=== PATIENT | female | born 1945 | race Caucasian/White ===

== ENCOUNTER 2018-03-02 08:17 | Day surgery (SDC) | payer BC ==
[~2018-03-02] VITALS: Ht 160 cm; Wt 90.5 kg
[~2018-03-02 08:17] MED LIST: ACET325 PO; ALBU90OI INH; CHOL10002 PO; Flagyl500 MG PO; Flovent Diskus50 MCG INH; GLIM2 PO; LEVFLO500 PO; LEVSOD88 PO; LOSARTAN POTAS100 MG PO; Lovastatin20 MG PO; METF500 PO; Micro-K10 MEQ PO; Norco 5-325 Ta1 EACH PO; Omega 3 1,0001 EACH PO; QVAR INH; RIZATRIPTAN5 M1; TRAM50 PO; TRIHYD5075 PO; Toprol Xl50 MG PO; Travatan Z5 ML TOP
[2018-03-02] MEDS ORDERED: AZAT50 (08:58)
[2018-03-02] MEDS ORDERED: IBUP400 (08:59)
[2018-03-02] MEDS ORDERED: CALCA400CH (08:59)
== END 2018-03-02 10:27 | disposition home or self-care (01) ==
LOC: ORSCSDS 08:17
PROVIDERS: Internal Medicine Gastroenterology
PROC: 0DBP8ZX Excision of Rectum, Via Natural or Artificial Opening Endoscopic, Diagnostic (ICD-10-PCS; principal; 2018-03-02 09:30)
PROC: 0DBE8ZX Excision of Large Intestine, Via Natural or Artificial Opening Endoscopic, Diagnostic (ICD-10-PCS; principal; 2018-03-02 09:30)
DX: K51.90 Ulcerative colitis, unspecified, without complications (principal); K51.30 Ulcerative (chronic) rectosigmoiditis without complications; K57.30 Diverticulosis of large intestine without perforation or abscess without bleeding; K51.40 Inflammatory polyps of colon without complications; K64.8 Other hemorrhoids; E78.5 Hyperlipidemia, unspecified; E03.9 Hypothyroidism, unspecified; E66.9 Obesity, unspecified; Z68.35 Body mass index [BMI] 35.0-35.9, adult; Z79.899 Other long term (current) drug therapy
CPT/HCPCS: 88305; J7120

== ENCOUNTER → 2018-12-27 | Outpatient (CLI) | payer BC ==
[~2018-12-27] MED LIST changes: +AZAT50; +CALCA400CH; +IBUP400
== END | disposition home or self-care (01) ==
LOC: LAB 06:00 → LAB SHORT 06:00 → EDSTATUS 12-27 10:50 → LAB FUT 12-27 10:50
DX: R19.7 Diarrhea, unspecified (principal)
CPT/HCPCS: 87493